=== PATIENT | female | born 1965 | race Caucasian/White ===

== ENCOUNTER 2020-09-17 13:56 | Emergency (ER) | payer SELFPAY ==
[~2020-09-17] VITALS: Ht 165.1 cm; Wt 131.0 kg
[2020-09-17 13:58] VITALS: BP 126/70
== END 2020-09-17 14:41 | disposition home or self-care (01) ==
LOC: ED 14:24
DX: E03.9 Hypothyroidism, unspecified (principal); Z76.0 Encounter for issue of repeat prescription
CPT/HCPCS: 99281

== ENCOUNTER 2020-11-01 20:12 | Emergency (ER) | payer SELFPAY ==
[~2020-11-01] VITALS: Ht 165.1 cm; Wt 127.8 kg
[2020-11-01] MEDS ORDERED: ACETAMINOPHEN 325 MG TABLET ONE (20:46)
[2020-11-01] MEDS ORDERED: methylPREDNISolone SOD SUCC 125 MG/2 ML ONE (20:46)
[2020-11-01] MEDS ORDERED: SODIUM CHLORIDE FLUSH 10ML SYR IVF ONE (21:00)
[2020-11-01] MEDS ORDERED: SODIUM CHLORIDE 0.9% 1,000ML IVBOLUS ONE (21:00)
[2020-11-01] MEDS ORDERED: ACETAMINOPHEN 325 MG TABLET PO ONE (21:00)
[2020-11-01] MEDS ORDERED: methylPREDNISolone SOD SUCC 125 MG/2 ML IV ONE (21:00)
--- NOTE | 2020-11-01 21:13 | NUR ---
PT C/O COUGH WITH YELLOW CLEAR SPHLEGM AND FEVER SINCE YESTERDAY PT STATES HER SISTER HAD COVID AND THEY WERE IN CLOSE CONTACT. PT RA O2 AT 90%. A&OX4, BREATHING EVEN AND UNLABORED. ATTAVCHED TO CARD/SP02/BP MONIOTORS. VSS. NADN. BED IN LOW POSITION, RAIOLS ENAGGED./ CALL LIGHT ON LAP,. WCTM
--- NOTE | 2020-11-01 21:15 | NUR ---
RESP ISO INITIATED 15 MINS AGO.
--- NOTE | 2020-11-01 22:06 | NUR ---
PT TRANSFERED TO BED COMMODE AND BACK IN BED. PT HAD UNMEASURED URINE. TOLERATED WELL. ATTACHED TO AL MONITORS. VSS. WCTM. NO ADDITIONAL QUESTIONS OR NEEDS. BLANKET REFUSED BLANKETS AGAIN BUT ACCPET PILLOW.
[2020-11-01 22:35] LABS: BASOPHILS % (AUTO) 1 % (0-1); EOSINOPHILS % (AUTO) 1 % (1-7); LYMPHOCYTES % (AUTO) 22 % (22-44); MEAN CORPUSCULAR HEMOGLOBIN 32.2 pg (27.0-34.8); MEAN CORPUSCULAR HGB CONC 33.6 g/dL (32.4-35.8); MEAN PLATELET VOLUME 10.2 fL (7.4-10.4); MONOCYTES % (AUTO) 4 % (2-9); NEUTROPHILS % (AUTO) 72 % (42-75); PLATELET COUNT 120 x10^3/uL (130-400); RED BLOOD COUNT 4.31 x10^6/uL (3.82-5.3); RED CELL DISTRIBUTION WIDTH 14.9 % (9.6-15.2)
--- NOTE | 2020-11-01 23:03 | NUR ---
PT RESTING ON GURNEY RESP EVEN AND UNLABORED NADN, VSS NO NEEDS AT THIS TIME.
[2020-11-01 23:41] LABS: ALBUMIN 3.4 g/dL (3.4-5.0); CALCIUM 8.5 mg/dL (8.5-10.1); CHLORIDE 105 mmol/L (98-107)
[2020-11-01 23:50] LABS: ALKALINE PHOSPHATASE 89 U/L (45-117); ANION GAP 12 mmol/L (5-15); BILIRUBIN,TOTAL 0.4 mg/dL (0.2-1.0); CREATININE 0.72 mg/dL (0.55-1.02); TOTAL PROTEIN 7.4 g/dL (6.4-8.2); TROPONIN I < 0.015 ng/mL (0.000-0.045)
[2020-11-01 23:58] LABS: ALANINE AMINOTRANSFERASE 31 U/L (12-78)
--- NOTE | 2020-11-02 00:45 | NUR ---
PT AMBULALATED AROUND ER WITH O2 TEST. PT MASKED. PT TOLERATED WELL. STATES SHE IS OKAY TO GO HOME. PULSE OX RANGING FROM 91-93% ON RA WHILE WALKING AT SITTING. WILL NOTIFY
[2020-11-02 01:07] VITALS: BP 115/54
--- NOTE | 2020-11-02 01:08 | NUR ---
Patient/Caregiver given discharge instructions and they have confirmed that they understand the instructions. Patient ambulatory with steady gait. NAD, all questions answered appropriately, denies additional needs at this time. No personal belongings left in room after discharge. PT MEDICALLY CLEARED BY DOCTOR. PT STATES SHE WANTS TO GO HOME.
== END 2020-11-02 01:14 | disposition home or self-care (01) ==
LOC: ED 21:15
DX: U07.1 COVID-19 (principal); J40 Bronchitis, not specified as acute or chronic; R91.8 Other nonspecific abnormal finding of lung field; R06.02 Shortness of breath; R94.31 Abnormal electrocardiogram [ECG] [EKG]; F17.200 Nicotine dependence, unspecified, uncomplicated; E03.9 Hypothyroidism, unspecified
CPT/HCPCS: 36415; 71045; 80053; 83880; 84484; 85025; 87040; 93005; 96361; 96374; 99285; J2930; J7030; U0003; U0005